=== PATIENT | female | born 1975 | race Caucasian/White ===

== ENCOUNTER 2017-11-03 20:28 | Emergency (ER) | payer BC ==
[~2017-11-03] VITALS: Ht 170.2 cm; Wt 104.3 kg
[2017-11-03 21:04] VITALS: Ht 170.2 cm; Wt 104.3 kg
[2017-11-04 01:28] LABS: CALCIUM 8.6 mg/dL (8.5-10.1); CHLORIDE SERUM 101 mmol/L (98-107); CREATININE SERUM 0.7 mg/dL (0.6-1.0); GFR1 > 60 mL/min; GLUCOSE SERUM 101 mg/dL (74-106); SODIUM SERUM 141 mmol/L (136-145)
[2017-11-04 01:32] LABS: ALBUMIN 3.7 g/dL (3.4-5.0); ALKALINE PHOSPHATASE 121 U/L (46-116); ALT/SGPT 22 U/L (14-59); AST/SGOT 13 U/L (15-37); BILIRUBIN TOTAL 0.41 mg/dL (0.20-1.00)
[2017-11-04 03:29] LABS: BASOPHIL % 0.6 % (0-2); RED CELL DISTRIBUTION WIDTH 14.3 % (11.5-14.5)
[2017-11-04 03:47] LABS: PLATELET COUNT 417 x10^3mcL (130-400)
[2017-11-04 03:50] VITALS: BP 131/68
== END 2017-11-04 03:50 | disposition home or self-care (01) ==
LOC: ED 20:28
PROVIDERS: Emergency Medicine
DX: L76.34 Postprocedural seroma of skin and subcutaneous tissue following other procedure (principal)
CPT/HCPCS: 36415; Q9967